=== PATIENT | female | born 2000 ===

== ENCOUNTER 2019-03-25 10:20 | Outpatient (CLI) | payer OTHER ==
[~2019-03-25] VITALS: Ht 158.8 cm; Wt 84.8 kg
--- NOTE | 2019-03-25 10:30 | NUR ---
YAW CASTILLO presented to unit via ambulatory from ED, accompanied by her mother , with c/o VAGINAL BLEEDING. YAW CASTILLO weighed, gowned, voided, and to bed. EFHM and TOCO applied, VS taken. YAW CASTILLO oriented to bed controls, call light, TV, heat, and A/C controls. Dr Ness present on unit at the time of pt's arrival. Pt and mom speak little Danish. No care, thinks her last period was on June but unsure. Admits to irregular periods. Lives in [facility] and was walking for several days and "got detained",then noticed some bleeding.
[2019-03-25 10:40] VITALS: BP 122/80
[2019-03-25 11:32] LABS: BILIRUBIN,URINE NEGATIVE (NEGATIVE); CLARITY,URINE CLEAR; COLOR,URINE YELLOW; GLUCOSE, URINE (UA) NEGATIVE (NEGATIVE); KETONES,URINE NEGATIVE (NEGATIVE); LEUKOCYTE ESTERASE ,URINE 2+ (NEGATIVE); NITRITE,URINE NEGATIVE (NEGATIVE); PH,URINE 8 (5-9); PROTEIN,URINE NEGATIVE (NEGATIVE); UROBILINOGEN,URINE NORMAL (NORMAL)
[2019-03-25 11:45] LABS: RBC,URINE 0-2 /HPF
[2019-03-25 11:46] LABS: BACTERIA,URINE NEGATIVE /HPF
--- NOTE | 2019-03-25 12:20 | NUR ---
Ultrasound here at bedside. 1300 Up to BR.
--- NOTE | 2019-03-25 12:36 | NUR ---
No vaginal bleeding noted - external exam of perineum, no vaginal exam. Good accelerations with contractions 5-6 minutes apart. Pt unaware of them upon admission but is a little uncomfortable with them now. Ultrasound here at bedside to to scan.
[2019-03-25 13:15] VITALS: BP 127/84
[2019-03-25] MEDS ORDERED: LACTATED RINGERS 1,000 ML IV SCH (15:00)
--- NOTE | 2019-03-25 15:20 | Diagnostic Imaging Report ---
INDICATION: Bleeding and lack of care. TECHNIQUE: Multiple real-time grayscale images were obtained over the gravid uterus. COMPARISON: None. FINDINGS: There is a single live fetus in a cephalic presentation. heart rate measures 118 beats per minute. Placenta is anterior. Amniotic fluid index is 9.1 cm. survey demonstrates bladder and stomach to be unremarkable. Left kidney was not well seen due to lie. brain is unremarkable. There is a four-chamber heart. There is a three-vessel cord but cord insertion is limited due to position. spine is unremarkable, although the lower spine is somewhat limited in evaluation. Biometrical measurements are as follows: Biparietal 9.26 cm, age 37 weeks 5 days. Head circumference 33.70 cm, age 38.5 weeks 38 days. Abdominal circumference 5 cm, age 33.76 weeks 37 days. Femur length 5 cm, age 7.52 weeks 38 days. Sonographic estimate age: 38 weeks 2 days. Sonographic estimated date of delivery: 04/06/19. Estimated Weight: 3357 gm (+/- 490 gm). LMP percentile: NA%. heart rate: 4 beats per minute. number: 1 of 1. IMPRESSION: Single live IUP at approximately 38 weeks gestational age with estimated date of confinement sonographically of 04/06/2019. survey is somewhat limited, as described above. Dictated by: Dictated on workstation # [id number]
--- NOTE | 2019-03-25 16:20 | NUR ---
Dr Ness called to inquire on pt status. Read sono report to physician. Will plan discharge if no cervical change. Follow up Friday with Dr Ness providing pt agrees. Addendum: 03/25/19 at 1705 by ARNALDO JASMINE RN [id number] No cervical change, no vaginal bleeding. Reactive heart rate. Appointment with Dr Ness Friday at 0900 03/29/19. Home instructions given - translation per phone. Verbalizes understanding.
--- NOTE | 2019-04-02 14:56 | Physician Query-Final Dx ---
EARLENE TEJEDA 04/02/19 1456: Clinic Account Progress/Dx Physician Query: Please give diagnosis Need dx and weeks of gestation Date of Service Mar 25, 2019 at 10:20 LARS ALEXANDER MD 04/07/19 1704: Clinic Account Progress/Dx DIAGNOSIS: Diagnosis Third Trimester vaginal bleeding 39 week gestation EARLENE TEJEDA Apr 02, 2019 14:56 LARS ALEXANDER MD Apr 07, 2019 17:04
[2019-04-03] MEDS ORDERED: IBUP-844 PO (10:03)
== END 2019-03-25 16:55 ==
LOC: WSo 10:20 → LDRP 10:22 → WSo 16:55
PROVIDERS: ATTEND Family Medicine
DX: O46.93 Antepartum hemorrhage, unspecified, third trimester (principal); Z3A.39 39 weeks gestation of pregnancy
CPT/HCPCS: 76805; 81000; 96360; 99213

== ENCOUNTER 2019-04-01 19:56 | Inpatient (IN) | payer OTHER | END 2019-04-03 15:00 | disposition home or self-care (01) | LOC: WSo 19:56 → LDRP 19:56 → WSo 20:09 → LDRP 04-02 13:50 ==

== ENCOUNTER 2021-10-23 04:41 | Inpatient (IN) | payer OTHER ==
[~2021-10-23] VITALS: Ht 164 cm; Wt 96.3 kg
[2021-10-23] VITALS (22 sets, daily range): BP systolic 118–143; BP diastolic 68–91
[~2021-10-23 04:41] MED LIST: IBUP-844 PO
[2021-10-23 05:05] LABS: BILIRUBIN,URINE NEGATIVE (NEGATIVE); CLARITY,URINE CLEAR; COLOR,URINE YELLOW; GLUCOSE, URINE (UA) NEGATIVE (NEGATIVE); KETONES,URINE NEGATIVE (NEGATIVE); LEUKOCYTE ESTERASE ,URINE 2+ (NEGATIVE); NITRITE,URINE NEGATIVE (NEGATIVE); PH,URINE 6.5 (5-9); PROTEIN,URINE NEGATIVE (NEGATIVE)
[2021-10-23 05:25] LABS: BACTERIA,URINE TRACE /HPF; RBC,URINE 0-2 /HPF; WBC,URINE 0-2 /HPF
[2021-10-23] MEDS ORDERED: OXYTOCIN PRE-MIX DRIP 500 ML IV ONE ×2 (08:13→12:03)
[2021-10-23] MEDS ORDERED: D5 LR IV SOLUTION 1,000 ML IV ONE (08:13)
[2021-10-23] MEDS ORDERED: MINERAL OIL 30 ML OIL TOP PRN (08:45)
[2021-10-23 08:57] LABS: BASOPHILS % (AUTO) 0 % (0-10); EOSINOPHILS % (AUTO) 0 % (0-10); HEMATOCRIT 40 % (35-52); HEMOGLOBIN 13.4 g/dL (11.5-16.0); LYMPHOCYTES # (AUTO) 1.2 10^3/uL (1.0-4.0); LYMPHOCYTES % (AUTO) 14 % (12-44); MEAN CORPUSCULAR HEMOGLOBIN 29 pg (25-34); MEAN CORPUSCULAR HGB CONC 34 g/dL (32-36); MEAN CORPUSCULAR VOLUME 87 fL (80-99); MEAN PLATELET VOLUME 11.4 fL (9.0-12.2); MONOCYTES # (AUTO) 0.4 10^3/uL (0.0-1.0); MONOCYTES % (AUTO) 4 % (0-12); NEUTROPHILS # (AUTO) 6.8 10^3/uL (1.8-7.8); NEUTROPHILS % (AUTO) 80 % (42-75); PLATELET COUNT 195 10^3/uL (130-400); WHITE BLOOD COUNT 8.5 10^3/uL (4.3-11.0)
--- NOTE | 2021-10-23 10:03 | History & Physical-OB ---
OB - Chief Complaint & HPI Date/Time Date of Admission: Date of Admission: Oct 23, 2021 at 08:05 Date seen by a Provider: Oct 23, 2021 Time Seen by a Provider: 08:45 Chief Complaint/History OB-Reason for Admission/Chief: Onset of Labor Hx : 2 Hx Para: 1 Expected Date of Delivery: Oct 23, 2021 Gestational Age in Weeks: 40 Gestational Age in Days: 3 Other reason for admission: Patient started having stronger contractions around 8-9 PM. She then presented to L&D early this AM. Denies any LOF or vaginal bleeding. + FM Allergies and Home Medications Allergies Coded Allergies: No Known Allergies (Verified Allergy, Unknown, 03/25/19) Patient Home Medication List Discontinued Medications Ibuprofen (Ibu) 600 Mg Tablet, 600 MG PO Q6HR Discontinued Reason: No Longer Taking Prescribed by: COLLETTE BENTON on 04/03/19 1003 Last Action: Discontinued OB - History Hx of Present Care: Yes Obstetrical History Hx : 2 Hx Para: 1 Hx Total # of Abortions (Spona: 0 Patient Past Medical History none reported Immunizations Influenza Vaccine Up-to-Date: No; Not Current OB - Admission Exam Physical Exam Vitals: Vital Signs 10/23/21 10/23/21 04:56 05:03 Temp 36.4 Pulse 76 Resp 18 B/P (MAP) 131/91 (104) Pulse Ox 99 O2 Delivery Room Air Labs Laboratory Tests Test 10/23/21 04:45 10/23/21 08:20 Range/Units Urine Color YELLOW Urine Clarity CLEAR Urine pH 6.5 5-9 Urine Specific [place] 1.010 L 1.016-1.022 Urine Protein NEGATIVE NEGATIVE Urine Glucose (UA) NEGATIVE NEGATIVE Urine Ketones NEGATIVE NEGATIVE Urine Nitrite NEGATIVE NEGATIVE Urine Bilirubin NEGATIVE NEGATIVE Urine Urobilinogen 0.2 < = 1.0 MG/DL Urine Leukocyte Esterase 2+ H NEGATIVE Urine RBC (Auto) 1+ H NEGATIVE Urine RBC 0-2 /HPF Urine WBC 0-2 /HPF Urine Squamous Epithelial Cells 2-5 /HPF Urine Crystals NONE /LPF Urine Bacteria TRACE /HPF Urine Casts NONE /LPF Urine Mucus NEGATIVE /LPF Urine Culture Indicated NO White Blood Count 8.5 4.3-11.0 10^3/uL Red Blood Count 4.60 3.80-5.11 10^6/uL Hemoglobin 13.4 11.5-16.0 g/dL Hematocrit 40 35-52 % Mean Corpuscular Volume 87 80-99 fL Mean Corpuscular Hemoglobin 29 25-34 pg Mean Corpuscular Hemoglobin Concent 34 32-36 g/dL Red Cell Distribution Width 16.0 H 10.0-14.5 % Platelet Count 195 130-400 10^3/uL Mean Platelet Volume 11.4 9.0-12.2 fL Immature Granulocyte % (Auto) 1 % Neutrophils (%) (Auto) 80 H 42-75 % Lymphocytes (%) (Auto) 14 12-44 % Monocytes (%) (Auto) 4 0-12 % Eosinophils (%) (Auto) 0 0-10 % Basophils (%) (Auto) 0 0-10 % Neutrophils # (Auto) 6.8 1.8-7.8 10^3/uL Lymphocytes # (Auto) 1.2 1.0-4.0 10^3/uL Monocytes # (Auto) 0.4 0.0-1.0 10^3/uL Eosinophils # (Auto) 0.0 0.0-0.3 10^3/uL Basophils # (Auto) 0.0 0.0-0.1 10^3/uL Immature Granulocyte # (Auto) 0.1 0.0-0.1 10^3/uL LARS ALEXANDER MD Oct 23, 2021 10:03
[2021-10-23] MEDS ORDERED: LIDOCAINE/EPI 2% 1:200,00 (XYLOCAINE) 10 ML VIAL ONE (11:27)
--- NOTE | 2021-10-23 11:53 | OB Labor & Delivery Record ---
Vag Delivery Note Vag Delivery Note Date of Delivery: 10/23/21 Preoperative Diagnosis: Galilea Hong is a (21 /Para 2 / 1, Gestational Age (wks)40.3 here in active labor Postoperative Diagnosis: Same Surgeon: LARS ALEXANDER MD Manager Fiber: Clinton Cancino MS4 Anesthesia: Natural Delivery Type: @1123 Findings: Viable male , apgars 8/9, weight 7#13, 3550 grams Lacerations: 2nd degree perineal Intact placenta with 3 vessel cord. Nuchal cord x1 reduced at delivery. No body cord or shoulder dystocia Estimated Blood Loss: 120 ml Complications: None Condition: Stable Description of Procedure: The patient is a 21 year old female who presented []. She was admitted and informed consent was obtained. Her labor course was remarkable for [] She progressed to complete dilatation and began to push. She was then set up for delivery. The 's head was delivered atraumatically in the [] position. The shoulders and remainder of the infant's body were then delivered without difficulty. Upon delivery, the head was held below the level of the perineum and the mouth and nares were bulb suctioned. The cord was doubly clamped and cut and the was handed off to the pediatric staff. An intact placenta with 3-vessel cord delivered via Fina and there was found to be minimal bleeding.~ Vigorous fundal massage was performed and the fundus was found to be firm. IV oxytocin was given. Examination of the vagina and perineum revealed a [] laceration repaired in the usual fashion with 3-0 vicryl suture. Following the repair, sponge, instrument and needle counts were correct. Mom and baby were both in stable condition in the labor suite. Vitals - Labs Vital Signs - I&O Vital Signs Date Time Temp Pulse Resp B/P (MAP) Pulse Ox O2 Delivery O2 Flow Rate FiO2 10/23/21 10:10 89 18 126/73 (90) Room Air 10/23/21 09:55 79 18 142/82 (102) Room Air 10/23/21 09:40 93 18 142/73 (96) Room Air 10/23/21 09:25 100 18 118/76 (90) Room Air 10/23/21 09:10 96 18 120/75 (90) Room Air 10/23/21 08:55 37.5 93 18 120/76 (91) Room Air 10/23/21 07:30 36.9 10/23/21 05:03 36.4 76 18 99 Room Air 10/23/21 05:00 36.4 81 18 99 Room Air 10/23/21 04:56 36.4 81 18 131/91 (104) 99 Room Air Labs Laboratory Tests 10/23/21 04:45: Urine Color YELLOW, Urine Clarity CLEAR, Urine pH 6.5, Urine Specific [place] 1.010L, Urine Protein NEGATIVE, Urine Glucose (UA) NEGATIVE, Urine Ketones NEGATIVE, Urine Nitrite NEGATIVE, Urine Bilirubin NEGATIVE, Urine Urobilinogen 0.2, Urine Leukocyte Esterase 2+H, Urine RBC (Auto) 1+H, Urine RBC 0-2, Urine WBC 0-2, Urine Squamous Epithelial Cells 2-5, Urine Crystals NONE, Urine Bacteria TRACE, Urine Casts NONE, Urine Mucus NEGATIVE, Urine Culture Indicated NO 10/23/21 08:20: White Blood Count 8.5, Red Blood Count 4.60, Hemoglobin 13.4, Hematocrit 40, Mean Corpuscular Volume 87, Mean Corpuscular Hemoglobin 29, Mean Corpuscular Hemoglobin Concent 34, Red Cell Distribution Width 16.0H, Platelet Count 195, Mean Platelet Volume 11.4, Immature Granulocyte % (Auto) 1, Neutrophils (%) (Aut o) 80H, Lymphocytes (%) (Auto) 14, Monocytes (%) (Auto) 4, Eosinophils (%) (Auto) 0, Basophils (%) (Auto) 0, Neutrophils # (Auto) 6.8, Lymphocytes # (Auto) 1.2, Monocytes # (Auto) 0.4, Eosinophils # (Auto) 0.0, Basophils # (Auto) 0.0, Immature Granulocyte # (Auto) 0.1 LARS ALEXANDER MD Oct 23, 2021 11:53
[2021-10-23] MEDS ORDERED: BENZOCAINE/MENTHOL (DERMOPLAST) 56 ML CAN TP PRN (12:00)
[2021-10-23] MEDS ORDERED: MEASLES,MUMPS,RUBELLA 1 EA INJ SQ ONE (12:00)
[2021-10-23] MEDS ORDERED: TETANUS,DIPTH,PERTUSS P/F (BOOSTRIX) 0.5 ML VIAL IM ONE (12:00)
[2021-10-23] MEDS ORDERED: WITCH HAZEL(TUCKS) 40 EA JAR TOP PRN (12:00)
[2021-10-23] MEDS: OXYTOCIN PRE-MIX DRIP 500 ML IV SCH (12:09)
[2021-10-23] MEDS: D5 LR IV SOLUTION 1,000 ML IV SCH ×2 (12:10→16:45)
[2021-10-23] MEDS ORDERED: CATHETER FLUSH 10 ML SYR IV SCH ×2 (14:00)
[2021-10-23] MEDS: ACETAMINOPHEN 500 MG TAB (TYLENOL) PO SCH (14:29)
[2021-10-23] MEDS: IBUPROFEN 600 MG (MOTRIN) TAB PO SCH ×2 (14:29→20:30)
[2021-10-23] MEDS ORDERED: FLU QUADRIvalent (3YOA+) 60 mcg/0.5 ml 2021-22(AFLURIA) IM ONE (14:45)
[2021-10-23] MEDS: DOCUSATE SODIUM 100 MG (COLACE) CAP PO SCH (20:30)
[2021-10-24] MEDS: ACETAMINOPHEN 500 MG TAB (TYLENOL) PO SCH ×3 (00:04→05:15)
[2021-10-24 00:10] VITALS: BP 108/58
[2021-10-24] MEDS: IBUPROFEN 600 MG (MOTRIN) TAB PO SCH ×3 (02:30→14:20)
[2021-10-24 05:10] VITALS: BP 111/70
[2021-10-24 06:41] LABS: BASOPHILS % (AUTO) 0 % (0-10); EOSINOPHILS % (AUTO) 0 % (0-10); HEMATOCRIT 32 % (35-52); HEMOGLOBIN 10.5 g/dL (11.5-16.0); LYMPHOCYTES # (AUTO) 2.5 10^3/uL (1.0-4.0); LYMPHOCYTES % (AUTO) 27 % (12-44); MEAN CORPUSCULAR HEMOGLOBIN 29 pg (25-34); MEAN CORPUSCULAR HGB CONC 33 g/dL (32-36); MEAN CORPUSCULAR VOLUME 90 fL (80-99); MEAN PLATELET VOLUME 11.1 fL (9.0-12.2); MONOCYTES # (AUTO) 0.6 10^3/uL (0.0-1.0); MONOCYTES % (AUTO) 7 % (0-12); NEUTROPHILS # (AUTO) 6.1 10^3/uL (1.8-7.8); NEUTROPHILS % (AUTO) 66 % (42-75); PLATELET COUNT 165 10^3/uL (130-400); WHITE BLOOD COUNT 9.3 10^3/uL (4.3-11.0)
[2021-10-24 08:24] VITALS: BP 103/71
[2021-10-24] MEDS: DOCUSATE SODIUM 100 MG (COLACE) CAP PO SCH (08:24)
--- NOTE | 2021-10-24 10:15 | Discharge Summary ---
Diagnosis/Chief Complaint Date of Admission Oct 23, 2021 at 08:05 Date of Discharge 10/24/21 Admission Diagnosis Admission Diagnosis Third Trimester 40 week gestation Discharge Diagnosis @ 40 weeks Discharge Summary-Simple/Stand Procedures Discharge Physical Examination Allergies: Coded Allergies: No Known Allergies (Verified Allergy, Unknown, 03/25/19) Vitals & I&Os Vital Sign - Last 12Hours Date Time Temp Pulse Resp B/P (MAP) Pulse Ox O2 Delivery O2 Flow Rate FiO2 10/24/21 08:24 36.2 81 18 103/71 (82) 98 Room Air Intake and Output 10/24/21 00:00 Intake Total 480 ml Balance 480 ml General Appearance: Alert, Oriented X3, Cooperative, No Acute Distress Respiratory: Clear to Auscultation Cardiovascular: Regular Rate, No Murmurs Abdominal: Normal Bowel Sounds, Soft, No Tenderness, Other (Fundus firm and below umbilicus) Extremities: Other (trace swelling) Skin: No Rashes Neuro: Normal Speech Hospital Course Was the Problem List Reviewed?: Yes See final discharge diagnosis. Discussion & Recommendations 21 yo G2 now P2 delivered term male infant via @ 40.3 wga. Doing well. 6 week f.u with Thi Discharge Condition at discharge stable Instructions to patient/family Please see electronic discharge instructions given to patient. Discharge Medications Reviewed and agree with Discharge Medication list on patient's Discharge Instr uction sheet Copy Copies To 1: LARS ALEXANDER MD, HOLLY R MD Oct 24, 2021 10:15
[2021-10-24] MEDS ORDERED: IBUP-844 PO (10:17)
[2021-10-24] MEDS ORDERED: DOCU100C37 PO (10:17)
--- NOTE | 2021-10-24 10:17 | Discharge Summary ---
Discharge Inst-[facility] Reconcile Patient Problems Problems Reviewed?: Yes Depart Medications New, Converted or Re-Newed RX: Transmitted to Pharmacy New Medications: Docusate Sodium (Docusate Sodium) 100 Mg Capsule 100 MG PO BID, #14 CAP Ibuprofen (Ibu) 600 Mg Tablet 600 MG PO Q6HR, #90 TAB Follow Up/Instructions Goal/Follow Up: 6 week f.u with Thi Activity Activity: Activity as Tolerated Driving Instructions: You May Drive NO SMOKING: NO SMOKING Nothing Inside Vagina: No Douching, No Moqu[place], No Tampons Diet Discharge Diet: No Restrictions Symptoms to Report to DrYecenia: Swelling Increased, Bleeding Excessive, Fever Over 101 Degrees F, Pain/Pressure in Jaw For Any Problems or Questions: Contact Your Physician LARS ALEXANDER MD Oct 24, 2021 10:17
[2021-10-24 13:05] VITALS: BP 106/73
== END 2021-10-24 16:05 | disposition home or self-care (01) | DRG 807 ==
LOC: LDRP 04:41 → WSo 04:41 → LDRP 08:05 → WSo 08:05 → LDRP 13:45
PROVIDERS: ADMIT Family Medicine; ATTEND Family Medicine
PROC: 10E0XZZ Delivery of Products of Conception, External Approach (ICD-10-PCS; principal; 2021-10-23)
PROC: 0KQM0ZZ Repair Perineum Muscle, Open Approach (ICD-10-PCS; 2021-10-23)
DX: O48.0 Post-term pregnancy (principal); Z37.0 Single live birth; Z3A.40 40 weeks gestation of pregnancy; O70.1 Second degree perineal laceration during delivery; O69.81X0 Labor and delivery complicated by cord around neck, without compression, not applicable or unspecified
CPT/HCPCS: 36415; 81000; 85025; 86850; 86900; 86901; 99212